=== PATIENT | male | born 1995 | race Caucasian/White ===

== ENCOUNTER 2018-05-23 22:17 | Emergency (ER) | payer BC ==
[2018-05-23] MEDS ORDERED: NS 1,000 ML IV ONE (22:38)
[2018-05-23] MEDS ORDERED: ONDANSETRON 4 MG/2 ML VIAL IVP ONE (22:38)
[2018-05-23] MEDS ORDERED: ONDANSETRON 4 MG/2 ML VIAL ONE (22:38)
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
[2018-05-23 23:57] VITALS: BP 133/65
== END 2018-05-24 00:42 | disposition home or self-care (01) ==
DX: T67.5XXA Heat exhaustion, unspecified, initial encounter (principal); E86.9 Volume depletion, unspecified; I10 Essential (primary) hypertension; F17.200 Nicotine dependence, unspecified, uncomplicated
CPT/HCPCS: 96374; J2405